=== PATIENT | female | born 1985 | race Caucasian/White ===

== ENCOUNTER 2023-01-19 08:17 | Emergency (ER) | payer OTHER ==
[2023-01-19 08:53] LABS: RAPID STREP SCREEN Negative (Negative)
--- NOTE | 2023-01-19 09:25 | ED Physician Documentation ---
PD HPI URI - Stated complaint Stated Complaint: SORE THROAT/BODY ACHES - Chief complaint Chief Complaint: Heent - History obtained from History obtained from: Patient - History of Present Illness Timing - onset: How many weeks ago (2) Timing duration: Weeks (2) Timing details: Abrupt onset, Still present, Waxing and waning (had URI symptoms and cough, for a week, generally improving except for sinus drainage and pressure that has persisted and increased with drainage and pressure. Some purulent drainage now as well. Symptoms mostly frontal but some in sphenoid area too.) Associated symptoms: Fever, Nasal congestion, Sinus pain, Sore throat. No: Ear pain Contributing factors: No: Sick contact Similar symptoms before: Has not had sx before Recently seen: Not recently seen Review of Systems Constitutional: reports: Chills, Myalgias. denies: Fever Nose: reports: Congestion, Sinus pressure / pain Throat: reports: Sore throat Respiratory: denies: Cough Neurologic: denies: Altered mental status, Headache PD PAST MEDICAL HISTORY - Past Medical History Past Medical History: No Psych: Depression - Past Surgical History Past Surgical History: Yes General: Cholecystectomy - Present Medications Home Medications: Ambulatory Orders Medication Instructions Recorded Confirmed Cetirizine [ZyrTEC] 10 mg PO DAILY #15 tablet 01/19/23 Doxycycline Hyclate 100 mg PO BID 7 Days #14 cap 01/19/23 Fluticasone [Flonase] 2 sprays JOSE BID #16 gm 01/19/23 - Allergies Allergies/Adverse Reactions: Allergies Allergy/AdvReac Type Severity Reaction Status Date / Time cephalexin monohydrate * Allergy Mild itch Verified 04/14/22 20:09 [From Keflex] - Social History Does the pt smoke?: Yes Smoking Status: Current every day smoker Does the pt drink ETOH?: No Does the pt have substance abuse?: No - Immunizations Immunizations are current?: Yes Immunizations: TDAP >10years/unknown - POLST Patient has POLST: No PD ED PE NORMAL - Vitals Vital signs reviewed: Yes - General General: Alert and oriented X 3, Well developed/nourished - HEENT HEENT: Ears normal, Pharynx benign - Neck Neck: Supple, no meningeal sign, No adenopathy - Cardiac Cardiac: RRR, No murmur - Respiratory Respiratory: Clear bilaterally - Derm Derm: Normal color, Warm and dry Results - Vitals Vitals: Oxygen O2 Source Room air - Labs Labs: Microbiology 01/19/23 08:36 Group A Strep Throat Culture - Preliminary Throat Laboratory Tests 01/19/23 08:36 Group A Strep Rapid Negative PD Medical Decision Making - ED course Complexity details: considered differential (biphasic symptoms with initial URI type symptoms, improving reasonably well and with now excalating sinus symptoms most c/w secondary sinusitis bacterial sounding. ), d/w patient Departure - Departure Disposition: 01 Home, Self Care Clinical Impression: Acute sinusitis Condition: Stable Record reviewed to determine appropriate education?: Yes Instructions: ED Sinusitis Abx Tx Prescriptions: Doxycycline Hyclate 100 mg PO BID 7 Days #14 cap Fluticasone [Flonase] 2 sprays JOSE BID #16 gm Cetirizine [ZyrTEC] 10 mg PO DAILY #15 tablet Comments: This does sound likely you are developing a bacterial sinus infection at this point. The underlying was likely viral or allergies etc. We can go with doxycycline antibiotic twice daily for a week along with cetirizine once or twice daily to help with congestion. I would also suggest fluticasone nasal spray on each side twice daily over the next 10 to 14 days to improve sinus drainage. Stay well-hydrated. I sent your prescriptions to [facility] pharmacy. Discharge Date/Time: 01/19/23 10:02
[2023-01-19 10:01] VITALS: BP 130/76
== END 2023-01-19 10:02 | disposition home or self-care (01) ==
LOC: ED 08:17
DX: J01.90 Acute sinusitis, unspecified (principal); F17.200 Nicotine dependence, unspecified, uncomplicated
CPT/HCPCS: 87070; 87430; 99283